=== PATIENT | female | born 1960 | race Hispanic/Latino ===

== ENCOUNTER 2016-10-24 13:34 | Observation (INO) | payer MEDICARE, BC ==
[2016-10-24 13:56] VITALS: TEMP 98.2
[2016-10-24 13:59] VITALS: BMI 35.2
--- NOTE | 2016-10-24 14:24 | ED PDOC ---
Arrival/HPI <Nixon Soria - Last Filed: 10/24/16 15:57> - General Historian: Patient - History of Present Illness Time/Duration: Other (months ) Symptom Onset: Gradual Symptom Course: Improving Quality: Cramping Context: Home <MatthewMarycruz - Last Filed: 10/24/16 17:58> - General Chief Complaint: Abdominal Pain Time Seen by Provider: 10/24/16 13:40 - History of Present Illness Narrative History of Present Illness (Text): 10/24/16 14:21 Patient is a 55 y/o with pmh of htn, hld, chronic back pain with chronic tramadol dependency, psychiatric history, h/o chronic abdominal pain presenting with abdominal pain. Patient states she has chronic abdominal pain, has been seeing Gi for many years, last saw Gi ( Dr Hidalgo) on Saturday and she was told the constipation and nausea is due to her taking tramadol, to wean herself off of the tramadol. Patient states her pain is not as bad as Saturday, however she decided to come to the ED because Dr Hidalgo told him to come in to get the abdomen checked out. Patient denies cp, sob. Denies fever, chills, admits to nausea and abdominal pain. Patient states she is menopausal, and is using estrogen cream. 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 (Marycruz Castro) Past Medical History - Provider Review Nursing Documentation Reviewed: Yes - Travel History Have you recently traveled outside [place] w/in the past 3 mons?: No - Infectious Disease Hx of Infectious Diseases: None - Reproductive Menopause: Yes - Cardiac Hx Cardiac Disorders: Yes Hx Hypertension: Yes - Pulmonary Hx Respiratory Disorders: No - Neurological Hx Neurological Disorder: No - HEENT Hx HEENT Disorder: No - Renal Hx Renal Disorder: No - Endocrine/Metabolic Hx Endocrine Disorders: No - Hematological/Oncological Hx Blood Disorders: No - Integumentary Hx Dermatological Disorder: No - Musculoskeletal/Rheumatological Hx Musculoskeletal Disorders: Yes Hx Herniated Disk: Yes - Gastrointestinal Hx Gastrointestinal Disorders: No - Genitourinary/Gynecological Hx Genitourinary Disorders: No - Psychiatric Hx Psychophysiologic Disorder: Yes Hx Depression: Yes Hx Emotional Abuse: No Hx Physical Abuse: No Hx Substance Use: No - Surgical History Other/Comment: endoscopy - Anesthesia Hx Anesthesia: Yes Hx Anesthesia Reactions: No Hx Malignant Hyperthermia: No - Suicidal Assessment Feels Threatened In Home Enviroment: No <Marycruz Castro - Last Filed: 10/24/16 17:58> Family/Social History - Physician Review Nursing Documentation Reviewed: Yes Family/Social History: Hypertension, CAD/CO Smoking Status: Never Smoked Hx Alcohol Use: No Hx Substance Use: No <Marycruz Castro - Last Filed: 10/24/16 17:58> Allergies/Home Meds <Nixon Soria - Last Filed: 10/24/16 15:57> <PennyMarycruz merritt - Last Filed: 10/24/16 17:58> Allergies/Adverse Reactions: Allergies No Known Allergies Allergy (Verified 08/14/15 21:30) Home Medications: Home Meds Medication Instructions Recorded Confirmed Bisoprol/Hydrochlorothiazide [Ziac 1 tab PO DAILY 11/22/12 08/14/15 10 mg-6.25 mg] Ezetimibe [Zetia] 10 mg PO DAILY 11/22/12 08/14/15 Esomeprazole Magnesium [Nexium] 40 mg PO DAILY 08/14/15 08/14/15 Review of Systems - Review of Systems Constitutional: Normal Eyes: Normal ENT: Normal Respiratory: Normal Cardiovascular: Normal Gastrointestinal: Abdominal Pain, Constipation, Nausea. absent: Diarrhea, Vomiting, Appetite Changes, Hematochezia, Hematemesis Genitourinary Female: Normal Musculoskeletal: Normal, Back Pain Skin: Normal Neurological: Normal Endocrine: Normal Hemo/Lymphatic: Normal Psychiatric: Normal <Marycruz Castro - Last Filed: 10/24/16 17:58> Physical Exam Temperature: Afebrile Blood Pressure: Normal Pulse: Regular Respiratory Rate: Normal Appearance: Positive for: Well-Appearing, Non-Toxic, Comfortable Pain Distress: None Mental Status: Positive for: Alert and Oriented X 3 - Systems Exam Head: Present: Atraumatic, Normocephalic Extroacular Muscles: Present: EOMI Conjunctiva: No: Injected, Icteric Mouth: Present: Moist Mucous Membranes Neck: Present: Normal Range of Motion. No: JVD, Lymphadenopathy Respiratory/Chest: Present: Clear to Auscultation, Good Air Exchange. No: Respiratory Distress, Accessory Muscle Use, Wheezes, Rales, Retracting, Rhonchi , Tachypneic Cardiovascular: Present: Regular Rate and Rhythm, Normal S1, S2. No: Murmurs, Tachycardic, Bradycardic, Rub, Gallop Abdomen: Present: Tenderness (left upper quadrant), Normal Bowel Sounds, Scars. No: Distention, Peritoneal Signs, Rebound, Guarding, Hernias Upper Extremity: Present: Normal Inspection. No: Cyanosis, Edema Lower Extremity: Present: Normal Inspection, NORMAL PULSES. No: Edema, CALF TENDERNESS Neurological: Present: GCS=15 Skin: Present: Warm, Dry, Rashes, Normal Color Psychiatric: Present: Alert, Oriented x 3, Anxious, Depressed Mood <Marycruz Castro - Last Filed: 10/24/16 17:58> Vital Signs Temp Pulse Resp BP Pulse Ox 10/24/16 17:00 69 18 132/65 99 10/24/16 15:10 73 18 134/67 99 10/24/16 13:56 98.2 F 75 18 136/71 99 Medical Decision Making <Nixon Soria - Last Filed: 10/24/16 15:57> - Lab Interpretations I have reviewed the lab results: Yes (all nerve except uti.) - EKG Interpretation Interpreted by ED Physician: Yes Type: 12 lead EKG <Marycruz Castro - Last Filed: 10/24/16 17:58> ED Course and Treatment: Patient Seen With Resident: In agreement with resident note which contains more details about the patient. Patient was seen and evaluated with resident. Came up with plan and treatment together. A 55 year old female with abdominal pain. Additional HPI as noted by resident. Patient has left upper quadrant tenderness, no rebound or gaurding. Patient is also anxious and depressed on physical exam. Ordered EKG, CT scan of abdomen and pelvis, labs and Urinalysis. Will give patient pepcid, toradol and zofran. (Nixon Soria) 10/24/16 14:51 Patient is a 55 y/o with pmh of htn, hld, chronic back pain with chronic tramadol dependency, psychiatric history, h/o chronic abdominal pain presenting with abdominal pain and nausea for months. Differentials: gastritis, gastroenteritis, opioid induced constipation, anxiety induced abdominal pain, r/o sbo, colitis, ischemic bowel. r/o atypical ACS presentation. Plan: cbc, cmp, lipase, troponin pepcid and zofran toradol for pain, ekg CT abdomen and pelvis with po and IV contrast and reevaluate. Spoke to Dr Hidalgo, patient's gastroenteralogist on the phone. As per patient' s Gi, patient saw him for the first time on Saturday after years c/o constipation. After reviewing patient's med he told patient to try weaning herself off of tramadol. Patient called and left message with his service c/o intractable abdominal pain and diarrhea, thus he told her to come to [facility] [place] [facility] for possible blood work and CT abdomen and pelvis. As per Dr Hidalgo, patient had Colonoscopy in [address] which [address] Dr Hidalgo agreed with the above plan. Recommends patient follow up with him in 1 week if everything is normal, and if patient needs admission, he'll prefer Dr Louie as the Gi or Dr Rosas. (Marycruz Castro) - Lab Interpretations Lab Results: 10/24/16 15:15 10/24/16 15:15 Lab Results 10/24/16 15:15: Sodium 139, Potassium 3.7, Chloride 97 L, Carbon Dioxide 31, Anion Gap 15, BUN 14, Creatinine 0.7, Est GFR ( Amer) > 60, Est GFR (Non- Af Amer) > 60, Random Glucose 95, Calcium 9.9, Total Bilirubin 0.7, AST 35, ALT 51, Alkaline Phosphatase 82, Troponin I < 0.01, Total Protein 8.2, Albumin 4.6, Globulin 3.5, Albumin/Globulin Ratio 1.3, Lipase 92 10/24/16 15:15: WBC 8.0, RBC 4.34, Hgb 14.6, Hct 42.4, MCV 97.7, MCH 33.6, MCHC 34.4, RDW 12.6, Plt Count 324, MPV 11.0, Gran % 67.6, Lymph % (Auto) 22.6, [place] % (Auto) 8.3 H, Eos % (Auto) 0.6 L, Baso % (Auto) 0.9, Gran # 5.41, Lymph # 1.8 , [place] # 0.7 H, Eos # 0.1, Baso # 0.07 10/24/16 15:00: Urine Opiates Screen Negative, Urine Methadone Screen Negative, Ur Barbiturates Screen Negative, Ur Phencyclidine Scrn Negative, Ur Amphetamines Screen Negative, U Benzodiazepines Scrn Negative, U Oth Cocaine Metabols Negative, U Cannabinoids Screen Negative 10/24/16 15:00: Urine Color Yellow, Urine Appearance Clear, Urine pH 7.0, Ur Specific [place] 1.010, Urine Protein Negative, Urine Glucose (UA) Negative, Urine Ketones Negative, Urine Blood Negative, Urine Nitrate Negative, Urine Bilirubin Negative, Urine Urobilinogen 0.2, Ur Leukocyte Esterase Large H, Urine RBC 1 - 3, Urine WBC 5 - 10, Ur Epithelial Cells 10 - 12, Urine Bacteria Many - RAD Interpretation Narrative RAD Interpretations (Text): 10/24/16 17:54 CT abdomen and pelvis with po and iv contrast: FINDINGS: LOWER THORAX: Unremarkable. LIVER: Unremarkable. No gross lesion or ductal dilatation. GALLBLADDER AND BILE DUCTS: Unremarkable. PANCREAS: Unremarkable. No gross lesion or ductal dilatation. SPLEEN: 2 centimeter cystic lesion with a calcified rim along the inferior margin of the spleen which is nonspecific in etiology. Recommend correlation with MRI with contrast.. ADRENALS: Unremarkable. No mass. KIDNEYS AND URETERS: Unremarkable. No hydronephrosis. No solid mass. VASCULATURE: Unremarkable. No aortic aneurysm. BOWEL: Unremarkable. No obstruction. No gross mural thickening. APPENDIX: Normal appendix. PERITONEUM: Unremarkable. No free fluid. No free air. LYMPH NODES: Unremarkable. No enlarged lymph nodes. BLADDER: Unremarkable. REPRODUCTIVE: Unremarkable. BONES: No acute fracture. OTHER FINDINGS: None. IMPRESSION: 2 centimeter cystic lesion with a calcified rim along the inferior margin of the spleen which is nonspecific in etiology. Recommend correlation with MRI with contrast. (Marycruz Castro) Radiology Orders: 10/24/16 14:25 ABDOMEN & PELVIS [ABD PELVIS PO & IV CONTRAST] [CT] Stat - Medication Orders Current Medication Orders: Discontinued Medications Famotidine (Pepcid) 20 mg IVP STAT STA Stop: 10/24/16 14:16 Last Admin: 10/24/16 15:11 Dose: 20 mg Iohexol (Omnipaque 240 (50 Ml)) Confirm Administered Dose 50 ml .ROUTE .[facility] Stop: 10/24/16 14:35 Ketorolac Tromethamine (Toradol) 30 mg IVP STAT STA Stop: 10/24/16 14:42 Last Admin: 10/24/16 15:12 Dose: 30 mg Nitrofurantoin Macrocrystals (Macrobid) 100 mg PO STAT STA Stop: 10/24/16 17:36 Ondansetron HCl (Zofran Inj) 4 mg IVP STAT STA Stop: 10/24/16 14:16 Last Admin: 10/24/16 15:12 Dose: 4 mg ED OBSERVATION <Nixon Soria - Last Filed: 10/24/16 15:57> Date of observation admission: 10/24/16 Time of observation admission: 13:40 <Marycruz Castro - Last Filed: 10/24/16 17:58> - Observation admission statement Patient is being placed in observation because:: Need serial abdominal exams. (Marycruz Castro) - Goals of Observation Goals of observation are:: Serial abdominal exam, and obtain CT scan with IV/PO contrast. (Marycruz Castro) - Progress Note Progress Note: 10/24/16 15:41- Patient currently lying on the hospital bed, in no acute distress. Drinking po contrast. Patient received Zofran /Pepcid and toradol. Patient reports improvement of the abdominal pain. 10/24/16 17:[address] abdomen and pelvis pending final read. Patient has UTI, gave a dose of macrobid 100 mg stat. (Marycruz Castro) - Scribe Statement The provider has reviewed the documentation as recorded by the Scribe <Nixon Soria - Last Filed: 10/24/16 15:57> <Marycruz Castro - Last Filed: 10/24/16 17:58> - Scribe Statement Mikayla Rodas Provider Scribe Attestation: All medical record entries made by the Scribe were at my direction and personally dictated by me. I have reviewed the chart and agree that the record accurately reflects my personal performance of the history, physical exam, medical decision making, and the department course for this patient. I have also personally directed, reviewed, and agree with the discharge instructions and disposition. (Nixon Soria) Disposition/Present on Arrival <Nixon Soria - Last Filed: 10/24/16 15:57> - Present on Arrival Any Indicators Present on Arrival: No History of DVT/PE: No History of Uncontrolled Diabetes: No Urinary Catheter: No History of Decub. Ulcer: No History Surgical Site Infection Following: None - Disposition Have Diagnosis and Disposition been Completed?: Yes Disposition Time: 17:55 Patient Plan: Discharge <Marycruz Castro - Last Filed: 10/24/16 17:58> - Disposition Diagnosis: UTI (urinary tract infection) Disposition: HOME/ ROUTINE Condition: STABLE Discharge Instructions (ExitCare): Urinary Tract Infection in Women (ED) Additional Instructions: Please take the antibiotic as prescribed for 7 days. Follow up with Dr Hidalgo Please return tot he ED if symptoms worsens or if you have new symptoms. Prescriptions: Nitrofurantoin Macrocrystals [Macrobid] 100 mg PO BID #14 cap [facility] - Follow up with primary Joseph Costa MD [Medical Doctor] - Follow up with primary
[2016-10-24] MEDS ORDERED: Iohexol 240 (50 ml) ONE (14:34)
[2016-10-24 15:15] LABS: URINE BILIRUBIN NEGATIVE (NEGATIVE); URINE BLOOD NEGATIVE (NEGATIVE); URINE GLUCOSE (UA) NEGATIVE (NEGATIVE); URINE KETONE NEGATIVE (NEGATIVE); URINE LEUKOCYTE ESTERASE LARGE Leu/uL (NEGATIVE); URINE PROTEIN NEGATIVE mg/dL (<30 mg/dL); URINE UROBILINOGEN 0.2 E.U./dL (<1 E.U./dL)
[2016-10-24 15:17] LABS: URINE APPEARANCE CLEAR (CLEAR); URINE COLOR YELLOW (YELLOW)
[2016-10-24 15:28] LABS: ADD MANUAL DIFF? NO
[2016-10-24 15:34] LABS: BASO # 0.07 K/mm3 (0.0-2.0); BASO % 0.9 % (0.0-3.0); EOS # 0.1 (0.0-0.7); EOS % 0.6 % (1.5-5.0); GRAN # 5.41 (1.4-6.5); GRAN % 67.6 % (50.0-68.0); HEMATOCRIT 42.4 % (36.0-48.0); LYMPH # 1.8 (1.2-3.4); LYMPH % 22.6 % (22.0-35.0); MEAN CELL VOLUME 97.7 fL (80.0-105.0); MEAN CORPUSCULAR HEMOGLOBIN 33.6 pg (25.0-35.0); MEAN CORPUSCULAR HGB CONC 34.4 g/dl (31.0-37.0); MONO # 0.7 (0.1-0.6); MONO % 8.3 % (1.0-6.0); PLATELET COUNT 324 10^3/uL (120.0-450.0); RED CELL DISTRIBUTION WIDTH 12.6 % (11.5-14.5)
[2016-10-24 15:42] LABS: ALB/GLOB RATIO 1.3 (1.1-1.8); ALKALINE PHOSPHATASE 82 U/L (38-133); ALT/SGPT 51 U/L (7-56); AST/SGOT 35 U/L (15-39); BILIRUBIN,TOTAL 0.7 mg/dL (0.2-1.3); BLOOD UREA NITROGEN 14 mg/dL (7-21); CALCIUM 9.9 mg/dL (8.4-10.5); CARBON DIOXIDE 31 mmol/L (21-33); CHLORIDE 97 mmol/L (98-107); GFR AFRICAN-AMERICAN > 60; GLUCOSE,RANDOM 95 mg/dL (70-110); LIPASE 92 U/L (23-300); POTASSIUM 3.7 mmol/L (3.6-5.0); SODIUM 139 mmol/L (132-148); TOTAL PROTEIN 8.2 g/dL (5.8-8.3)
[2016-10-24 15:58] LABS: TROPONIN I < 0.01 ng/mL
[2016-10-24 16:38] LABS: URINE BACTERIA MANY (NEG)
[2016-10-24] MEDS ORDERED: Iohexol 350 MG/100 ML VIAL ONE (16:54)
--- NOTE | 2016-10-24 17:48 | CT ---
PROCEDURE: CT Abdomen and Pelvis with contrast HISTORY: abdominal pain COMPARISON: None. TECHNIQUE: Contrast dose: 100 cc of Omnipaque 350 Radiation dose: Total exam DLP = 846 mGy-cm. This CT exam was performed using one or more of the following dose reduction techniques: Automated exposure control, adjustment of the mA and/or kV according to patient size, and/or use of iterative reconstruction technique. FINDINGS: LOWER THORAX: Unremarkable. LIVER: Unremarkable. No gross lesion or ductal dilatation. GALLBLADDER AND BILE DUCTS: Unremarkable. PANCREAS: Unremarkable. No gross lesion or ductal dilatation. SPLEEN: 2 centimeter cystic lesion with a calcified rim along the inferior margin of the spleen which is nonspecific in etiology. Recommend correlation with MRI with contrast.. ADRENALS: Unremarkable. No mass. KIDNEYS AND URETERS: Unremarkable. No hydronephrosis. No solid mass. VASCULATURE: Unremarkable. No aortic aneurysm. BOWEL: Unremarkable. No obstruction. No gross mural thickening. APPENDIX: Normal appendix. PERITONEUM: Unremarkable. No free fluid. No free air. LYMPH NODES: Unremarkable. No enlarged lymph nodes. BLADDER: Unremarkable. REPRODUCTIVE: Unremarkable. BONES: No acute fracture. OTHER FINDINGS: None. IMPRESSION: 2 centimeter cystic lesion with a calcified rim along the inferior margin of the spleen which is nonspecific in etiology. Recommend correlation with MRI with contrast..
[2016-10-24 20:11] VITALS: BP 131/80; PULSE 72; RESP 16; O2SAT 100
== END 2016-10-24 19:08 | disposition home or self-care (01) ==
LOC: ED 13:34 → EROBSV 13:40
PROVIDERS: ADMIT Student in an Organized Health Care Education/Training Program; ATTEND Student in an Organized Health Care Education/Training Program
DX: N39.0 Urinary tract infection, site not specified (principal); I10 Essential (primary) hypertension; E78.5 Hyperlipidemia, unspecified
CPT/HCPCS: 36415; 74177; 80053; 81001; 83690; 84484; 85025; 87086; 96374; 96375; 99284; G0378; G0480; J1885; J2405; Q9966